=== PATIENT | male | born 1990 | race Hispanic/Latino ===

== ENCOUNTER 2017-02-09 14:38 | Emergency (ER) | payer OTHER ==
--- NOTE | 2017-02-09 15:26 | ED PDOC ---
Upper Extremity Pain/Injury Time Seen by Provider: 02/09/17 15:05 Chief Complaint (Nursing): Upper Extremity Problem/Injury Chief Complaint (Provider): Upper extremity tinging History Per: Patient History/Exam Limitations: no limitations Onset/Duration Of Symptoms: Days (4) Additional Complaint(s): Patient is a 26 y/o male with no significant past medical history presenting to the emergency department for constant left upper extremity tingling that started Monday evening (02/06/17). Reports that the tingling has gotten worse since onset and involves his left hand, arm, and the area behind his left shoulder. Denies any associated pain, numbness, motor weakness, and difficulty moving his arm. Patient also notes a lump on his left upper arm for about two months that has grown in size over the last few weeks. Denies any pain, trauma, or skin changes. PCP: none provided. Past Medical History Reviewed: Historical Data, Nursing Documentation, Vital Signs Vital Signs: Last Vital Signs Temp 97.8 F 02/09/17 14:45 Pulse 92 H 02/09/17 14:45 Resp 18 02/09/17 14:45 BP 139/75 02/09/17 14:45 Pulse Ox 100 02/09/17 14:45 - Medical History PMH: No Chronic Diseases - Surgical History Surgical History: No Surg Hx - Family History Family History: States: No Known Family Hx - Social History Current smoker - smoking cessation education provided: No Ex-Smoker (has not smoked in the last 12 months): No Alcohol: None Drugs: Denies - Home Medications Home Medications: Ambulatory Orders Medication Instructions Recorded Naproxen [Naprosyn] 1 tab PO BID PRN #30 tab 02/09/17 - Allergies Allergies/Adverse Reactions: Allergies Allergy/AdvReac Type Severity Reaction Status Date / Time No Known Allergies Allergy Verified 02/09/17 15:17 Review of Systems ROS Statement: Except As Marked, All Systems Reviewed And Found Negative Skin: Positive for: Other (lump on left upper arm and no other significant skin changes noted) Neurological: Positive for: Other (tingling to left arm, hand, and behind left shoulder). Negative for: Numbness (motor deficits or decreased range of motion) Physical Exam - Reviewed Nursing Documentation Reviewed: Yes Vital Signs Reviewed: Yes - Physical Exam Appears: Positive for: Well, No Acute Distress Head Exam: Positive for: ATRAUMATIC, NORMOCEPHALIC Skin: Positive for: Warm, Dry Neck: Positive for: Normal, Painless ROM, Supple Cardiovascular/Chest: Positive for: Regular Rate, Rhythm, Chest Non Tender. Negative for: Murmur Extremity: Positive for: Normal ROM, Swelling (Nonmobile firm mass lateral LEFT upper arm at inferior edge of deltoid, nontender). Negative for: Tenderness, Deformity Lymphatic: Negative for: Adenopathy Neurologic/Psych: Positive for: Alert, Other (LEFT hand: FROM 5/5 strength thumb opposition/abduction and finger opposition, light touch intact in all nerve distributions of the hand). Negative for: Motor/Sensory Deficits - Laboratory Results Result Diagrams: 02/09/17 17:01 02/09/17 17:01 - ECG O2 Sat by Pulse Oximetry: 100 (RA) Pulse Ox Interpretation: Normal Medical Decision Making Medical Decision Making: Time: 15:17 Initial Impression: neuropathy and arm mass. Differential diagnoses include but are not limited to: cyst, abscess, lipoma, peripheral neuropathy, and electrolyte abnormality. Initial Plan: Labs: CMP, Magnesium, Phosphorus, CBC Ibuprofen 600 mg PO Soft Tissue Ultrasound Reevaluation 16:10 Soft Tissue Ultrasound reviewed. Findings noted as follows: FINDINGS: There is a somewhat ovoid it appearing structure similar to the local soft tissues superficial to the muscle but deep to the dermis suggestive of probable lipoma. This can be better evaluated by MRI with and without contrast on elective basis. It is avascular on color per ultrasound. It measures 1.8 x 0.1.5 cm. IMPRESSION: 1.8 cm subcutaneous nodular finding may represent a benign lipoma. Consider follow-up MRI without contrast for more definitive evaluation. No additional findings. Labs unremarkable DW pt findings and plan of care. NSAIDs for 1 week and follow up with PMD/Neuro. Also advised to follow up with PMD concerning lipoma and would need referral to surgeon for excision. Scribe Attestation: Documented by Kiana Clark, acting as a scribe for Lisa Layton MD. Provider Scribe Attestation: All medical record entries made by the Scribe were at my direction and personally dictated by me. I have reviewed the chart and agree that the record accurately reflects my personal performance of the history, physical exam, medical decision making, and the department course for this patient. I have also personally directed, reviewed, and agree with the discharge instructions and disposition. Disposition - Clinical Impression Clinical Impression: Neuropathy, peripheral Counseled Patient/Family Regarding: Studies Performed, Diagnosis, Need For Followup, Rx Given - Disposition Referrals: [facility] [Outside] [facility] [Outside] Tripp Waddell MD [Medical Doctor] - Park Sullivan MD [Staff Provider] - Disposition: Routine/Home Disposition Time: 17:00 Condition: GOOD Additional Instructions: Please follow up with your PMD or a Neurologist in a week to see how you are doing. The growth on your arm is most likely a lipoma. You need to follow up with a surgeon if you desire excision. Prescriptions: Naproxen [Naprosyn] 1 tab PO BID PRN #30 tab PRN Reason: Neuropathy Instructions: Peripheral Neuropathy (ED), Lipoma (ED) Forms: [facility] ([place]), [facility] ED School/Work Excuse
--- NOTE | 2017-02-09 16:12 | US ---
PROCEDURE: SOFT TISSUE ULTRASOUND LEFT UPPER EXTREMITY HISTORY: COMPARISON: NONE TECHNIQUE: Limited ultrasonography of a palpable abnormality in the proximal left upper extremity was performed using grayscale and color Doppler technique and a high-frequency transducer. FINDINGS: There is a somewhat ovoid it appearing structure similar to the local soft tissues superficial to the muscle but deep to the dermis suggestive of probable lipoma. This can be better evaluated by MRI with and without contrast on elective basis. It is avascular on color per ultrasound. It measures 1.8 x 0.1.5 cm. IMPRESSION: 1.8 cm subcutaneous nodular finding may represent a benign lipoma. Consider follow-up MRI without contrast for more definitive evaluation. No additional findings.
[2017-02-09 17:07] LABS: BASO % 0.6 % (0.0-2.0); EOS # 0.1 K/uL (0.0-0.7); HEMATOCRIT 41.4 % (35.0-51.0); LYMPH # 2.1 K/uL (1.0-4.3); LYMPH % 29.5 % (20.0-40.0); MEAN CELL VOLUME 88.4 fl (80.0-94.0); MEAN CORPUSCULAR HEMOGLOBIN 29.1 pg (27.0-31.0); MEAN CORPUSCULAR HGB CONC 32.9 g/dL (33.0-37.0); MEAN PLATELET VOLUME 8.7 fl (7.2-11.7); MONO # 0.5 K/uL (0.0-0.8); MONO % 6.4 % (0.0-10.0); NEUT # 4.3 K/uL (1.8-7.0); NEUT % 61.5 % (50.0-75.0); RED CELL DISTRIBUTION WIDTH 12.9 % (11.5-14.5)
[2017-02-09 17:14] LABS: ALB/GLOB RATIO 1.5 (1.0-2.1); ALKALINE PHOSPHATASE 61 U/L (38-126); ALT/SGPT 67 U/L (21-72); AST/SGOT 39 U/L (17-59); BILIRUBIN,TOTAL 1.1 mg/dl (0.2-1.3); BLOOD UREA NITROGEN 9 mg/dl (9-20); CALCIUM 9.2 mg/dL (8.4-10.2); CARBON DIOXIDE 29 mmol/L (22-30); CHLORIDE 102 mmol/L (98-107); GFR AFRICAN-AMERICAN > 60; GLUCOSE,RANDOM 68 mg/dL (75-110); MAGNESIUM 1.7 MG/DL (1.6-2.3); PHOSPHOROUS 3.4 mg/dl (2.5-4.5); POTASSIUM 3.7 MMOL/L (3.6-5.0); SODIUM 142 mmol/l (132-148); TOTAL PROTEIN 7.7 G/DL (6.3-8.2)
[2017-02-09 18:16] VITALS: BP 126/78; PULSE 78; RESP 17; TEMP 97; O2SAT 98
== END 2017-02-09 18:16 | disposition home or self-care (01) ==
LOC: H.ER 14:38
DX: G62.9 Polyneuropathy, unspecified (principal); Z87.891 Personal history of nicotine dependence